=== PATIENT | female | born 1990 | race Caucasian/White ===

== ENCOUNTER 2017-03-07 15:25 | Emergency (ER) | payer BC ==
[~2017-03-07] VITALS: Ht 170.2 cm; Wt 115.5 kg
[~2017-03-07 15:25] MED LIST: LOVENOX100 MG/1 M SC; ORTHO TRI-CYCL1 EACH PO; WARFARIN SODIUM5 MG PO
[2017-03-07 16:30] LABS: HEMATOCRIT 41.5 % (36.0-46.0); MCH 28.8 PG (29.0-34.0); MCHC 33.3 G/DL (30.0-36.0); MCV 86.5 FL (83-99); MEAN PLAT.VOLUME 11.5 uM^3 (9.5-12.4); PLATELET COUNT 315 K/uL (156-360); RBC DIS.WIDTH-CV 12.6 % (11.8-14.6); WHITE BLOOD COUNT 7.9 K/uL (4.1-10.2)
[2017-03-07 16:44] LABS: CHLORIDE 107 mEq/L (99-109); POTASSIUM 4.3 mEq/L (3.7-5.4); SODIUM 140 mEq/L (136-147)
[2017-03-07 16:46] LABS: GLUCOSE 95 mg/dL (70-99)
[2017-03-07 16:48] LABS: ANION GAP 9 MEQ/L (2-14)
[2017-03-07 16:50] LABS: GFR ESTIMATE (CALCULATED) > 59 mL/min/
[2017-03-07 16:51] LABS: UREA NITROGEN (BUN) 11 mg/dL (9-23)
[2017-03-07 16:53] LABS: TROP-I INTERPRETATION NEGATIVE; TROPONIN-I < 0.01 ng/mL (0.0-0.30)
[2017-03-07 17:57] LABS: ADD MIUA? YES; BILIRUBIN NEGATIVE; BLOOD NEGATIVE; COLOR YELLOW ((YELLOW)); GLUCOSE (STRIP) NEGATIVE; KETONES NEGATIVE; LEUKOCYTES NEGATIVE; NITRITE NEGATIVE; PROTEIN (STRIP) NEGATIVE; SPECIFIC GRAVITY 1.008 (1.000-1.030); UROBILINOGEN 0.2 MG/DL (0.2-1.0)
[2017-03-07 18:01] LABS: BACTERIA NONE SEEN /HPF; EPITHELIAL CELLS 2+ /HPF; MUCUS NONE SEEN /LPF; RED BLOOD CELLS 0-5 /HPF (0-5); WHITE BLOOD CELLS 0-5 /HPF (0-5)
[2017-03-07 18:07] LABS: D-DIMER ELISA < 150.00 ng/mLDDU (<230)
[2017-03-07] MEDS ORDERED: MOTRIN600 MG PO (19:02)
[2017-03-07 19:11] VITALS: BP 124/84
== END 2017-03-07 19:18 | disposition home or self-care (01) ==
LOC: EME 15:25
PROVIDERS: Physician Assistant Medical
DX: M94.0 Chondrocostal junction syndrome [Tietze] (principal); R42 Dizziness and giddiness; R06.00 Dyspnea, unspecified; M79.604 Pain in right leg; M79.605 Pain in left leg; Z86.718 Personal history of other venous thrombosis and embolism; F17.200 Nicotine dependence, unspecified, uncomplicated; Z79.3 Long term (current) use of hormonal contraceptives
CPT/HCPCS: 71020; 80048; 81003; 84484; 85027; 85379; 93005; 94640; 99281; 99284